=== PATIENT | male | born 1955 | race Caucasian/White ===

== ENCOUNTER 2023-04-16 21:27 | Emergency (ER) | payer MEDICARE, OTHER ==
[2023-04-16 21:56] LABS: BASOPHILS % (AUTO) 0.2 %; EOSINOPHILS # (AUTO) 0.1 10^3/uL (0.0-0.7); EOSINOPHILS % (AUTO) 0.4 %; HCT - HEMATOCRIT 49.5 % (42.0-52.0); HGB - HEMOGLOBIN 16.9 g/dL (14.0-18.0); LYMPHOCYTES # (AUTO) 1.7 10^3/uL (1.5-3.5); LYMPHOCYTES % (AUTO) 10.1 %; MEAN CORPUSCULAR HEMOGLOBIN 30.4 pg (27.0-31.0); MEAN CORPUSCULAR HGB CONC 34.1 g/dL (32.0-36.0); MEAN PLATELET VOLUME 9.7 fL (7.4-11.4); MONOCYTES # (AUTO) 1.2 10^3/uL (0.0-1.0); MONOCYTES % (AUTO) 7.4 %; NEUTROPHILS # (AUTO) 13.5 10^3/uL (1.5-6.6); NEUTROPHILS % (AUTO) 81.4 %; PLT - PLATELET COUNT 188 10^3/uL (130-450); RED BLOOD COUNT 5.56 10^6/uL (4.70-6.10); RED CELL DISTRIBUTION WIDTH 12.8 % (12.0-15.0); WHITE BLOOD COUNT 16.6 x10^3/uL (4.8-10.8)
[2023-04-16 22:05] LABS: ALBUMIN/GLOBULIN RATIO 1.7 (1.0-2.2); BILIRUBIN,TOTAL 0.9 mg/dL (0.2-1.0); CALCIUM 10.9 mg/dL (8.5-10.3); CREATININE 0.7 mg/dL (0.6-1.3); POTASSIUM 3.5 mmol/L (3.5-4.5)
[2023-04-16] MEDS ORDERED: SODIUM CHLORIDE 0.9% 1,000 ML IV STA (22:22)
[2023-04-16] MEDS ORDERED: ONDANSETRON 4 MG/2 ML VIAL IVP STA (22:22)
[2023-04-16] MEDS ORDERED: MORPHINE 2 MG/ML CARPUJECT IVP STA (22:22)
[2023-04-17 00:49] LABS: BILIRUBIN,URINE NEGATIVE (NEGATIVE); GLUCOSE, URINE (UA) >=1000 mg/dL (NEGATIVE); KETONES,URINE (UA) 15 mg/dL (NEGATIVE); LEUKOCYTE ESTERASE, URINE NEGATIVE (NEGATIVE); NITRITE,URINE NEGATIVE (NEGATIVE); OCCULT BLOOD,URINE NEGATIVE (NEGATIVE); PH,URINE 5.5 PH (5.0-7.5); PROTEIN,URINE NEGATIVE (NEGATIVE); UROBILINOGEN,URINE 0.2 (NORMAL) E.U./dL (NORMAL)
[2023-04-17 00:57] LABS: CLARITY,URINE CLEAR (CLEAR)
[2023-04-17] MEDS ORDERED: iohexoL-300 100 ML VIAL IVP ONE (01:39)
--- NOTE | 2023-04-17 02:54 | CT Report ---
PROCEDURE: ABDOMEN/PELVIS W INDICATIONS: abd pain CONTRAST: Omni 300 100ml TECHNIQUE: After the administration of intravenous contrast, 5 mm thick sections acquired from the diaphragms to the symphysis. 5 mm thick coronal and sagittal reformats were acquired. For radiation dose reducti on, the following was used: automated exposure control, adjustment of mA and/or kV according to parminder ent size. COMPARISON: None FINDINGS: Image quality: Excellent. Lung bases and heart: 3 mm posterior lateral right lower lobe lung nodule is nonspecific. Lung bases are otherwise clear. Normal heart size. No hiatal hernia. Liver: Moderate diffuse hepatic hypodensity. Elongated right hepatic lobe. A small coarse peripheral calcification. No enhancing mass. Gallbladder and biliary tree: Normal gallbladder without wall thickening or calcification. Nondilated biliary tree. Spleen: No splenomegaly. Pancreas: No pancreatic ductal dilation. Adrenals: No adrenal nodule. Kidneys and ureters: No hydronephrosis. No renal cystic lesion which requires follow up. No solid mas s. Bowel and peritoneum: Stomach and small bowel are normal. Mildly increased quantity of solid stool pr esent throughout the colon and rectum. No pericolonic inflammation. Lymph nodes: No central or retroperitoneal adenopathy. Vessels: Normal caliber vasculature. Moderate atherosclerotic calcification of aorta. PELVIS Reproductive organs: Normal. Bladder: No abnormal wall thickening, accounting for underdistension. Pelvic lymph nodes: No pelvic adenopathy by size criteria. Bones: No aggressive osseous abnormality. Other: No significant ventral or inguinal hernia. IMPRESSION: 1. Mild hepatomegaly and hepatic steatosis. 2. Moderate colonic obstipation. Reviewed by: Shona Vee MD on 04/17/2023 2:53 AM PDT Approved by: Shona Vee MD on 04/17/2023 2:53 AM PDT Station ID: [id number]
--- NOTE | 2023-04-17 02:58 | ED Physician Documentation ---
History of Present Illness - Stated complaint Stated Complaint: /GI - Chief complaint Chief Complaint: Abd Pain - Additonal information Additional information: Patient 67-year-old male presenting to the emergency department with abdominal pain, constipation, difficulty urinating. Presents reporting 3 days difficulty with constipation. Increasing abdominal pain and feelings of cramping in his lower abdomen. Given today because he was unable to urinate for 7 hours. Shortly after arrival to the emergency department he passed a large bowel movement that had multiple episodes of spontaneous micturition. He reported that these things made him feel significantly better. States that he intermittently takes MiraLAX for his symptoms. Otherwise denies for fever, chest pain, shortness of breath Review of Systems Constitutional: denies: Fever Eyes: denies: Loss of vision Ears: denies: Loss of hearing Nose: denies: Rhinorrhea / runny nose Throat: denies: Dental pain / toothache Cardiac: denies: Chest pain / pressure Respiratory: denies: Dyspnea GI: reports: Abdominal Pain, Constipation : denies: Dysuria Skin: denies: Rash PD PAST MEDICAL HISTORY - Present Medications Home Medications: Ambulatory Orders Medication Instructions Recorded Confirmed Docusate Sodium 100Mg Capsule 100 mg PO DAILY #30 cap 04/17/23 [Colace 100Mg Capsule] polyethylene glycoL 3350 [Miralax] 17 gm PO DAILY #30 packet 04/17/23 - Allergies Allergies/Adverse Reactions: Allergies Allergy/AdvReac Type Severity Reaction Status Date / Time lisinopril AdvReac Respiratory Verified 04/16/23 21:32 PD ED PE NORMAL - Vitals Vital signs reviewed: Yes - General General: Alert and oriented X 3 - HEENT HEENT: Atraumatic - Neck Neck: Supple, no meningeal sign - Cardiac Cardiac: RRR, No gallop, Strong equal pulses - Respiratory Respiratory: No respiratory distress, Clear bilaterally - Abdomen Abdomen: Normal bowel sounds, Soft, Non tender, No organomegaly - Male Male : Deferred - Rectal Rectal: Deferred - Back Back: No CVA TTP Results - Vitals Vitals: Vital Signs - 24 hr 04/16/23 04/16/23 04/17/23 21:32 22:34 00:00 Temperature 36.7 C Heart Rate 100 72 83 Respiratory 16 18 16 Rate Blood Pressure 140/90 H 137/68 H 124/65 O2 Saturation 98 98 94 04/17/23 04/17/23 00:29 01:26 Temperature Heart Rate 80 74 Respiratory 16 18 Rate Blood Pressure 124/65 145/91 H O2 Saturation 98 93 Oxygen O2 Source Room air - Labs Labs: Laboratory Tests 04/16/23 04/16/23 04/17/23 21:48 21:48 00:40 WBC 16.6 H RBC 5.56 Hgb 16.9 Hct 49.5 MCV 89.0 MCH 30.4 MCHC 34.1 RDW 12.8 Plt Count 188 MPV 9.7 Neut # (Auto) 13.5 H Lymph # (Auto) 1.7 Linn # (Auto) 1.2 H Eos # (Auto) 0.1 Baso # (Auto) 0.0 Absolute Nucleated RBC 0.00 Nucleated RBC % 0.0 Sodium 135 Potassium 3.5 Chloride 97 L Carbon Dioxide 26 Anion Gap 12.0 BUN 16 Creatinine 0.7 Estimated GFR (MDRD) 112 Glucose 173 H Calcium 10.9 H Total Bilirubin 0.9 AST 26 ALT 47 Alkaline Phosphatase 56 Total Protein 8.0 Albumin 5.0 Globulin 3.0 Albumin/Globulin Ratio 1.7 Lipase 26 Urine Color YELLOW Urine Clarity CLEAR Urine pH 5.5 Ur Specific Frederic 1.020 Urine Protein NEGATIVE Urine Glucose (UA) >=1000 H Urine Ketones 15 H Urine Occult Blood NEGATIVE Urine Nitrite NEGATIVE Urine Bilirubin NEGATIVE Urine Urobilinogen 0.2 (NORMAL) Ur Leukocyte Esterase NEGATIVE Ur Microscopic Review NOT INDICATED Urine Culture Comments NOT INDICATED PD Medical Decision Making - ED course Complexity details: reviewed results, re-evaluated patient, considered differential, d/w patient ED course: Patient 67-year-old male presenting to the emergency department with chief complaint abdominal pain. Arrived with report of 3 days of constipation and 7 hours of inability to urinate however had a large [facility] spontaneous micturition and almost complete resolution of his symptoms. His initial labs did demonstrate a leukocytosis with bandemia as well as a very minimal and somewhat nonspecific hyperkalemia. I did obtain a CT scan of his abdomen and pelvis which demonstrated some hepatomegaly and steatosis but no other acute findings. This time I believe the most likely etiology for his presentation was constipation resulting in transient bladder outlet obstruction. We will encourage him to take MiraLAX and Dulcolax as a bowel regimen and increase his intake and fluids, fiber for foods. We will also encourage him to follow-up with primary care for evaluation of his very minimal hyperkalemia. Clear return precautions given. Departure - Departure Disposition: 01 Home, Self Care Clinical Impression: Constipation Qualifiers: Constipation type: unspecified constipation type Qualified Code(s): K59.00 - Constipation, unspecified Abdominal pain Qualifiers: Abdominal location: generalized Qualified Code(s): R10.84 - Generalized abdominal pain Instructions: Abdominal Pain, ED Constipation Prescriptions: Docusate Sodium 100Mg Capsule [Colace 100Mg Capsule] 100 mg PO DAILY #30 cap polyethylene glycoL 3350 [Miralax] 17 gm PO DAILY #30 packet Comments: Thank you for allowing us to care for you today at [facility]. Today in the emergency department your evaluated for any possible dangerous or life-threatening medical emergency. The testing performed in the emergency department today including your lab work, and the CT scan of your abdomen and pelvis did not show any dangerous or life- threatening medical emergency. Your CT scan did show modest constipation and I like you to begin a regular bowel regimen. I have sent prescriptions to your preferred pharmacy for MiraLAX as well as Dulcolax. Please begin using these medications regularly. Please follow-up with your primary care doctor soon as possible concerning your ER visit.
[2023-04-17 03:10] VITALS: BP 127/57; O2SAT 98
== END 2023-04-17 03:10 | disposition home or self-care (01) ==
LOC: ED 21:27
DX: K59.00 Constipation, unspecified (principal)
CPT/HCPCS: 36415; 74177; 80053; 81003; 83690; 85025; 96361; 96374; 96375; 99284; Q9967; 81001; 87086